=== PATIENT | female | born 1950 | race Caucasian/White ===

== ENCOUNTER 2018-08-11 05:41 | Inpatient (IN) | payer BC ==
[~2018-08-11 05:41] MED LIST: Buffered Lidocaine 1% SYRIN* 1 ML/SYRINGE INTRADERM ONE
--- OUTSIDE RECORDS SUMMARY | 2018-08-11 05:45 | XMS REPORT | Continuity of Care Document ---
:1950 External Reference #:[id number] Author Name Mary Tomlinson Care Team Providers Name Role Phone Tyson Quiñonez MD Primary Care Physician Unavailable Payers Date Identification Numbers Payment Provider Subscriber Policy Number: [id number] [facility] Camille Berry Group Number: [id number] [address] PayID: [id number] [place] [address] Advance Directives Description No Information Available Problems Description No Information Family History Date Family Member(s) Observation Comments Father Prostate Cancer Mother unknown, adopted Mother due to nonhodkins lymphoma () Siblings 5 Social History Type Date Description Comments Sex Unknown Marital Status Single Lives With Alone Occupation Currently Working Occupation radiology assistant to uma at [employer] ETOH Use Denies alcohol use Tobacco Use Start: Unknown Patient has never smoked Recreational Drug Use Never Used Drugs Smoking Status Reviewed: 07/22/18 Patient has never smoked Exercise Type/Frequency Does not exercise Allergies, Adverse Reactions, Alerts Date Description Reaction Status Severity Comments 10/18/2011 Simvastatin Active Medications Medication Date Status Form Strength Qnty SIG Indications Ordering Provider Cyclobenzaprine 07/20 Active Tablets 10mg 21tab take 1 M51.26 Vassilios HCL s tablet by James frias MD to three times a day as needed Lisinopril Active Tablets 10mg 1 by mouth Unknown /0000 every day Hydrochlorothiazid Active Capsules 12.5mg 1 by mouth Unknown e /0000 every day Gabapentin Active Capsules 300mg 1 by mouth Unknown /0000 three times a day Vitamin D Active Capsules 400Unit 60cap 2 by mouth Unknown (Cholecalciferol) / s daily Calcium 1200 Active Chewtabs 8871-0542 1 by mouth Unknown /0000 mg-Unit every day Dilaudid 11/10 Hx Tablets 2mg 40tab 1-2 tab po s q 6 hr prn Florentino, - pain M.D. 07/05 Percocet 10/14 Hx Tablets 5-325mg 60tab 1-2 po s q4-6h prn Young, - pain M.D. 07/05 Medrol Dosepak 11/26 Hx Tablets 4mg 1tabs follow package Florentino, - directions M.D. 07/05 take with food Diclofenac Sodium 11/06 Hx Tablets 75mg 60tab [address] stacey Morrison, - day M.D. 07/05 Immunizations Description No Information Available Vital Signs Date Vital Result Comment 07/22/2018 12:49pm Height 63 inches 5'3" Weight 248.25 lb Heart Rate 73 /min BP Systolic Sitting 133 mmHg L BP Diastolic Sitting 82 mmHg L Respiratory Rate 18 /min Pain Level 6 O2 % BldC Oximetry 96 % BMI (Body Mass Index) 44.0 kg/m2 07/20/2018 1:10pm Height 63 inches 5'3" Weight 245.00 lb BP Systolic Sitting 140 mmHg BP Diastolic Sitting 70 mmHg Pain Level 6 BMI (Body Mass Index) 43.4 kg/m2 07/06/2018 3:42pm Height 63 inches 5'3" Weight 245.00 lb Heart Rate 84 /min BP Systolic 124 mmHg BP Diastolic 82 mmHg Body Temperature 98.9 F Pain Level 6 BMI (Body Mass Index) 43.4 kg/m2 Results Description No Information Available Procedures Date Code Description Status 05/16/2016 97479 ECHO Transthoracic, Real-Time 2D With Doppler And Color Completed Flow 10/23/2011 20743 TKR Total Knee Replacement Completed 10/23/2011 59032 TKR Total Knee Replacement Completed 08/13/2011 85246 Xray Knee 3 Views Completed 08/13/2011 37789 Rad Exam; Knee, Ap&L Completed 10/23/2010 56932 Xray Knee 3 Views Completed Encounters Type Date Location Provider Dx Diagnosis Office Visit 07/20/2018 Spine Navigator Rochelle Schrader, M48.062 Spinal stenosis, 1:15p Of Livestock Agent PA-C lumbar region with neurogenic claudication M41.9 Scoliosis, unspecified M51.26 Other intervertebral disc displacement, lumbar region M43.16 Spondylolisthesis, lumbar region M43.17 Spondylolisthesis, lumbosacral region Office Visit 07/06/2018 4:00p Spine Navigator Rochelle Schrader, M51.37 Other intervertebral Of [facility] MARILIN disc degeneration, lumbosacral region M43.16 Spondylolisthesis, lumbar region M41.9 Scoliosis, unspecified Office Visit 07/09/2012 Perla Good, 719.46 Pain Joint Lower Leg 8:15a Services Of [facility] Office Visit 03/24/2012 Perla Good 715.96 Osteoarthrosis 8:00a Services Of C.MNilaANila Le Unspec Genlzd Or Localized Lower Leg Office Visit 08/13/2011 Perla Good 715.96 Osteoarthrosis 9:45a Services Of C.Theresa Le Unspec Genlzd Or Localized Lower Leg Office Visit 12/17/2010 Perla Good, 715.96 Osteoarthrosis 8:15a Services Of C.Theresa Le Unspec Genlzd Or Localized Lower Leg Office Visit 11/26/2010 Perla Good, 715.96 Osteoarthrosis 4:00p Services Of C.Theresa Le Unspec Genlzd Or Localized Lower Leg Office Visit 11/05/2010 Orthopedic Dimitri Morrison, 836.1 Dislocation Knee 11:15a Services Of CMoe Le Tear Of Lateral Cartilage Or Meniscus Curre Office Visit 10/23/2010 Perla Good, 715.96 Osteoarthrosis 11:15a Services Of C.DonnaANila Le Unspec Genlzd Or Localized Lower Leg Office Visit 10/12/2010 Neurosurgery Yo Lange 724.02 Spinal Stenosis, 11:00a Services Of [facility] Michell, Lumbar Region, W/O M.DNila Neurogenic Claudication Plan of Treatment Future Appointment(s):08/19/2018 1:15 pm - Rochelle Schrader PA-C at Spine Navigator Of [facility]08/11/2018 10:30 am - Rochelle Schrader PA-C at Neurosurgery Services Of [facility]08/11/2018 10:30 am - Tigre Ramirez MD at Neurosurgery Services Of [facility]07/22/2018 - Tigre Ramirez, MDM48.062 Spinal stenosis, lumbar region with neurogenic claudicationFollow up:RV one week, one month, three months postop. Please notify me when imaging is completed.M43.16 Spondylolisthesis, lumbar ktrplfR51.9 Scoliosis, rzlxhasgajsC15.26 Other intervertebral disc displacement, lumbar region
--- OUTSIDE RECORDS SUMMARY | 2018-08-11 05:45 | XMS REPORT | Continuity of Care Document ---
:1950 External Reference #:[id number] Author Name Anne Marie Baumann Care Team Providers Name Role Phone Tyson Quiñonez MD Primary Care Physician Unavailable Payers Date Identification Numbers Payment Provider Subscriber Policy Number: [id number] [facility] Camille Berry Group Number: [id number] [address] PayID: [id number] [place] [address] Advance Directives Description No Information Available Problems Description No Information Family History Date Family Member(s) Observation Comments Father Prostate Cancer Mother unknown, adopted Mother due to nonhodkins lymphoma () Siblings 5 Social History Type Date Description Comments Sex Unknown Marital Status Single Lives With Alone Occupation Currently Working Occupation automobile mechanic assistant to uma at [employer] ETOH Use Denies alcohol use Tobacco Use [...] / s daily Calcium 1200 Active Chewtabs 9459-1040 1 by mouth Unknown /0000 mg-Unit every [...] Available Procedures Date Code Description Status 05/16/2016 80636 ECHO Transthoracic, Real-Time 2D With Doppler And Color Completed Flow 10/23/2011 65305 TKR Total Knee Replacement Completed 10/23/2011 19332 TKR Total Knee Replacement Completed 08/13/2011 33401 Xray Knee 3 Views Completed 08/13/2011 26847 Rad Exam; Knee, Ap&L Completed 10/23/2010 03740 Xray Knee 3 Views Completed Encounters Type Date Location Provider Dx Diagnosis Office Visit 07/06/2018 Spine Navigator Rochelle Schrader, M51.37 Other intervertebral 4:00p Of J2E[employer] Application Developer PA-C disc degeneration, lumbosacral region M43.16 Spondylolisthesis, lumbar region M41.9 Scoliosis, unspecified Office Visit 07/09/2012 Perla Good, 719.46 Pain Joint Lower Leg 8:15a Services Of C.Theresa Le Office Visit 03/24/2012 Perla Good, 715.96 Osteoarthrosis 8:00a Services Of C.Theresa Le Unspec Genlzd Or Localized Lower Leg Office Visit 08/13/2011 Perla Good, 715.96 Osteoarthrosis 9:45a Services Of C.Theresa Le Unspec Genlzd Or Localized Lower Leg Office Visit 12/17/2010 Perla Good, 715.96 Osteoarthrosis 8:15a Services Of C.Theresa Le Unspec Genlzd Or Localized Lower Leg Office Visit 11/26/2010 Perla Good, 715.96 Osteoarthrosis 4:00p Services Of C.Theresa Le Unspec Genlzd Or Localized Lower Leg Office Visit 11/05/2010 Orthopedic Dimitri Morrison, 836.1 Dislocation Knee 11:15a Services Of C.Theresa Le Tear Of Lateral Cartilage Or Meniscus Curre Office Visit 10/23/2010 Perla Good, 715.96 Osteoarthrosis 11:15a Services Of C.Theresa Le Unspec Genlzd Or Localized Lower Leg Office Visit 10/12/2010 Neurosurgery Yo Lange 724.02 Spinal Stenosis, 11:00a Services Of [facility] [place], Lumbar Region, W/O M.DNila Neurogenic Claudication Plan of Treatment Future Appointment(s):07/30/2018 8:00 am - Tigre Ramirez MD at Neurosurgery Services Of [facility]08/19/2018 1:15 pm - Rochelle Schrader PA-C at Spine Navigator Of [facility]08/11/2018 10:30 am - Rochelle Schrader PA-C at Neurosurgery Services Of [facility]08/11/2018 10:30 am - Tigre Ramirez MD at Neurosurgery Services Of [facility]07/20/2018 - ROCKY Loyd-CM48.062 Spinal stenosis, lumbar region with neurogenic rwhfzgwjucpdV44.16 Spondylolisthesis, lumbar fvyaiyN98.9 Scoliosis, qwoquyqzeqaH91.26 Other intervertebral disc displacement, lumbar regionNew Medication:Cyclobenzaprine HCL 10 mg - take 1 tablet by mouth up to three times a day as neededFollow up:With Dr. Darnell43.17 Spondylolisthesis , lumbosacral region
--- OUTSIDE RECORDS SUMMARY | 2018-08-11 05:45 | XMS REPORT | Continuity of Care Document ---
:1950 External Reference #:[id number] Author Name Anne Marie Baumann Care Team Providers Name Role Phone Tyson Quiñonez MD Primary Care Physician Unavailable Payers Date Identification Numbers Payment Provider Subscriber Policy Number: [id number] [facility] Fausto Berry Group Number: [id number] [address] PayID: [id number] [place] [address] Advance Directives Description No Information Available Problems Description No Information Family History Date Family Member(s) Observation Comments Father Prostate Cancer Mother unknown, adopted Mother due to nonhodkins lymphoma () Siblings 5 Social History Type Date Description Comments Sex Unknown Marital Status Single Lives With Alone 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 [employer] Tobacco Use Start: Unknown Never Smoked Cigarettes Smoking Status Reviewed: 08/06/18 Never Smoked Cigarettes ETOH Use Denies alcohol use Tobacco Use Start: Unknown Patient has never smoked Recreational Drug Use Never Used Drugs Exercise Type/Frequency Exercises rarely Allergies, Adverse Reactions, Alerts Date Description Reaction Status Severity Comments 10/18/2011 Simvastatin Active 08/06/2018 Tetanus Toxin Active Medications Medication Date Status Form Strength Qnty SIG Indications Ordering Provider Lisinopril Active Tablets 10mg 1 by mouth Unknown /0000 every day Hydrochlorothiazid Active Capsules 12.5mg 1 by mouth Unknown e /0000 every day Gabapentin Active Capsules 300mg 1 by mouth Unknown /0000 three times a day Calcium 1200 Active Chewtabs 5036-2178 1 by mouth Unknown /0000 mg-Unit every day Vitamin D High Active Capsules 1000Unit 2 by mouth Unknown Potency /0000 every day Advil Active Tablets 200mg 2 tabs by Unknown /0000 mouth daily as needed@hs Cyclobenzaprine 03/25 Hx Tablets 10mg 21tab take 1 M51.26 Vassilios HCL s tablet by James - mouth MD rodriguez 08/05 to times a day as needed Dilaudid 11/10 Hx Tablets 2mg 40tab 1-2 tab po Roverto s q 6 hr prn Florentino - pain M.D. 07/05 Percocet 10/14 Hx Tablets 5-325mg 60tab 1-2 po Roverto s q4-6h prn Anup Good pain M.D. 07/05 Medrol Dosepak 11/26 Hx Tablets 4mg 1tabs follow package Florentino - directions M.D. 07/05 take with food Diclofenac Sodium 11/06 Hx Tablets 75mg 60tab [address] ibarra twice a Prince, - day M.D. 07/05 Vitamin D Hx Capsules 400Unit 60cap 2 by mouth Unknown (Cholecalciferol) /0000 s daily - 08/05 Immunizations Description No Information Available Vital Signs Date Vital Result Comment 08/06/2018 9:14am Height 63 inches 5'3" Weight 248.00 lb Heart Rate 60 /min BP Systolic Sitting 132 mmHg lue large cuff BP Diastolic Sitting 80 mmHg lue large cuff BP Systolic Standing 128 mmHg lue large cuff BP Diastolic Standing 80 mmHg lue large cuff Respiratory Rate 16 /min BMI (Body Mass Index) 43.9 kg/m2 Ejection Fraction 55-60% echo 05/16/16 07/22/2018 12:49pm Height 63 inches 5'3" Weight [...] BMI (Body Mass Index) 43.4 kg/m2 Results Test Date Facility Test Result H/L Range Note CBC No Diff 08/04/2018 [facility] White Blood 6.9 10^3/uL N 3.5-10.[address] [place] [address] [phone] Red Blood Count 4.65 10^6/uL N 3.70-4.87 Hemoglobin 14.8 g/dL N 12.0-16.0 Hematocrit 43 % High 33-41 Mean Corpuscular Volume 93 fL N 80-97 Mean Corpuscular Hemoglobin 32 pg High 27-31 Mean Corpuscular HGB Conc 34 g/dL N 31-36 Red Cell Distribution Width 13 % N 10.5-15 Platelet Count 246 10^3/uL N 150-450 Mean Platelet Volume 8.2 fL N 7.4-10.4 Urinalysis Profile 08/04/2018 [facility] Urine [place] [address] [phone] Urine Appearance Cloudy Urine Specific [place] 1.017 N 1.010-1.030 Urine pH 5.0 N 5-9 Urine Urobilinogen Negative Negative Urine Ketones Negative Negative Urine Protein Negative Negative Urine Leukocytes 2+ Abnormal Negative Urine Blood Negative Negative Urine Nitrite Negative Negative Urine Bilirubin Negative Negative Urine Glucose Negative Negative Urine White Blood Cell 2+(11-20/hpf) Abnormal Absent Urine Red Blood Cell Trace(0-2/hpf) Absent Urine Bacteria Absent Absent Urine Squamous Epithelial Cell Present Abnormal Absent Inr/Protime 08/04/2018 [facility] Inr [address] N 0.77-[address] [place] [address] [phone] Laboratory test 08/04/2018 [facility] Partial 30.7 seconds N 26.0-36.[address] [place] [address] PTT [phone] Type & Screen 08/04/2018 [facility] Patient A Positive [address] [place] [address] [phone] Antibody Screen NEGATIVE Basic Metabolic Panel 08/04/2018 [facility] Sodium 138 mmol/L N [address] [place] [address] [phone] Potassium 4.1 mmol/L N 3.5-5.0 Chloride 104 mmol/L N 101-111 Co2 Carbon Dioxide 25 mmol/L N 22-32 Anion Gap 9 mmol/L N 2-11 Glucose 80 mg/dL N 70-100 Blood Urea Nitrogen 26 mg/dL High 6-24 Creatinine 0.90 mg/dL N 0.51-0.95 BUN/Creatinine Ratio 28.9 High 8-20 Calcium 10.2 mg/dL N 8.6-10.3 Egfr Non- 62.6 >60 Egfr 75.8 >60 1 Urine Culture And 08/04/2018 [facility] Urine Culture SEE RESULT [address] [place] [address] [phone] 1 Because ethnic data is not always readily available, this report includes an eGFR for both -Americans and non- Americans. The National Kidney Disease Education Program (NKDEP) does not endorse the use of the MDRD equation for patients that are not between the ages of 18 and 70, are , have extremes of body size, muscle mass, or nutritional status, or are non- or non-. According to the National Kidney Foundation, irrespective of diagnosis, the stage of the disease is based on the level of kidney function: Stage Description GFR(mL/min/1.73 m(2)) 1 Kidney damage with normal or decreased GFR 90 2 Kidney damage with mild decrease in GFR 60-89 3 Moderate decrease in GFR 30-59 4 Severe decrease in GFR 15-29 5 Kidney failure <15 (or dialysis) 2 SEE RESULT BELOW Name: FAUSTO BERRY : [address]: Tigre Ramirez MD Acct: [id number] Unit: [id number] AGE: 68 Location: [facility] Re08/04/18 SEX: F Status: REG REF SPEC: [id number] ALEXANDRA: 08/04/[address]: Tigre Ramirez MD REQ: [id number] RECD: 08/04/18 STATUS: ADITYA LYNN DR: Tyson Quiñonez MD _ SOURCE: URINE SPDESC: ORDERED: Urine Culture Procedure Result Reported Site Urine Culture Final 08/05/18- 1301 ML No growth of clinically significant organisms * ML - Main Lab . END OF REPORT DEPARTMENT OF PATHOLOGY, [address] [place] [id number] Ronny Adrian M.D. Director [facility] # [id number] Procedures Date Code Description Status 08/06/2018 44114 EKG Tracing & Interpretation Completed 05/16/2016 80451 ECHO Transthoracic, Real-Time 2D With Doppler And Color Completed Flow 10/23/2011 46725 TKR Total Knee Replacement Completed 10/23/2011 17328 TKR Total Knee Replacement Completed 08/13/2011 81989 Xray Knee 3 Views Completed 08/13/2011 11796 Rad Exam; Knee, Ap&L Completed 10/23/2010 10369 Xray Knee 3 Views Completed Encounters Type Date Location Provider Dx Diagnosis Office Visit 07/20/2018 Spine Navigator Rochelle Schrader, M48.062 Spinal stenosis, 1:15p Of Adjudication Specialist PA-C lumbar region with neurogenic claudication M41.9 Scoliosis, unspecified M51.26 Other intervertebral disc displacement, lumbar region M43.16 Spondylolisthesis, lumbar region M43.17 Spondylolisthesis, lumbosacral region Office Visit 07/06/2018 4:00p Spine Navigator Rochelle Schrader, M51.37 Other intervertebral Of Adjudication Specialist PA-C disc degeneration, lumbosacral region M43.16 Spondylolisthesis, lumbar region M41.9 Scoliosis, unspecified Office Visit 07/09/2012 Perla Good, 719.46 Pain Joint Lower Leg 8:15a Services Of Karyn Le Office Visit 03/24/2012 Perla Good, 715.96 Osteoarthrosis 8:00a Services Of Karyn Le Unspec Genlzd Or Localized Lower Leg Office Visit 08/13/2011 Perla Good 715.96 Osteoarthrosis 9:45a Services Of Karyn Le Unspec Genlzd Or Localized Lower Leg Office Visit 12/17/2010 Perla Good 715.96 Osteoarthrosis 8:15a Services Of Karyn Le Unspec Genlzd Or Localized Lower Leg Office Visit 11/26/2010 Perla Good 715.96 Osteoarthrosis 4:00p Services Of Karyn Le Unspec Genlzd Or Localized Lower Leg Office Visit 11/05/2010 Orthopedic Dimitri Morrison, 836.1 Dislocation Knee 11:15a Services Of Karyn Le Tear Of Lateral Cartilage Or Meniscus Curre Office Visit 10/23/2010 Orthopedic Roverto Good, 715.96 Osteoarthrosis 11:15a Services Of Karyn Le Unspec Genlzd Or Localized Lower Leg Office Visit 10/12/2010 Neurosurgery Yo Lange 724.02 Spinal Stenosis, 11:00a Services Of [facility] Michell, Lumbar Region, W/O Rey Neurogenic Claudication Plan of Treatment Future Appointment(s):08/19/2018 1:15 pm - Rochelle Schrader PA-C at Spine Navigator Of [facility]08/11/2018 10:30 am - Rochelle Schrader PA-C at Neurosurgery Services Of [facility]08/11/2018 10:30 am - Tigre Ramierz MD at Neurosurgery Services Of [facility]08/06/2018 - Vitaliy Schulz DO [id number] Encounter for preprocedural cardiovascular examinationFollow up:PRNE66.8 Other [id number] Essential (primary) hypertension
[2018-08-11] MEDS ORDERED: Lactated Ringers 1000 ML Bag* 1,000 ML IV SCH (06:00)
[2018-08-11] MEDS ORDERED: Acetaminophen TAB* 325 MG PO ONE (06:00)
[2018-08-11] MEDS ORDERED: Acetaminophen TAB* 325 MG ONE (06:54)
[2018-08-11] MEDS ORDERED: Buffered Lidocaine 1% SYRIN* 1 ML/SYRINGE INTRADERM ONE (06:54)
[2018-08-11] MEDS ORDERED: ceFAZolin 2 GM in NS PREMIX(*) 2 GM/100 ML BAG IVPB ONE (06:54)
[2018-08-11] MEDS ORDERED: Midazolam* 1 MG/ML 2 ML VIAL (2 MG) ONE (07:19)
[2018-08-11] MEDS ORDERED: fentaNYL* 50 MCG/ML 2 ML VIAL (100 MCG VIAL) ONE ×3 (07:19→12:48)
[2018-08-11] MEDS ORDERED: Famotidine IV* 10 MG/ML 2 ML (20 mg) ONE (07:22)
[2018-08-11] MEDS ORDERED: Cisatracurium* 2 MG/ML MDV 5 ML ONE (08:05)
[2018-08-11] MEDS ORDERED: Phenylephrine 10 MG/ML VIAL* 1 ML VIAL ONE (08:18)
[2018-08-11] MEDS ORDERED: Lidocaine 2% PF * 5 ML VIAL ONE (08:18)
[2018-08-11] MEDS ORDERED: Succinylcholine* 20 MG/ML 10 ML VIAL ONE (09:13)
[2018-08-11] MEDS ORDERED: Ondansetron INJ* 2 MG/ML VIAL ONE (09:13)
[2018-08-11] MEDS ORDERED: Dexamethasone IV* 4 MG/ML 1 ML (4 MG) ONE (09:13)
[2018-08-11] MEDS ORDERED: Propofol* 10 MG/ML 20 ML BTL ONE ×2 (09:13→11:54)
[2018-08-11] MEDS ORDERED: Lidocaine 1% MPF wEPI 200,000* 30 ML SDV ONE (09:34)
[2018-08-11] MEDS ORDERED: Gelfoam 12-7 ADSORBABL SPONGE* 1 EA SPONGE ONE (09:34)
[2018-08-11] MEDS ORDERED: Dexmedetomidine* 200 MCG/2 ML 2 ML VIAL ONE (09:46)
[2018-08-11] MEDS ORDERED: diPHENhydraMINE IV* 50 MG/ML 1 ml VIAL (BENADRYL) IV PRN (10:33)
[2018-08-11] MEDS ORDERED: Acetaminophen TAB* 325 MG PO PRN (10:33)
[2018-08-11] MEDS ORDERED: HYDROcodone/ACETAMIN 5-325 MG* 1 TAB PO PRN ×2 (10:33)
[2018-08-11] MEDS ORDERED: Naloxone* 0.4 MG/ML 1 ML VIAL IV PRN (10:33)
[2018-08-11] MEDS ORDERED: DiMENhydriNATE IV* 50 MG/ML VIAL IV PUSH PRN (10:33)
[2018-08-11] MEDS ORDERED: PROCHLORPERAZINE INJ 5 MG/ML 2 ML VIAL IV PRN (10:33)
[2018-08-11] MEDS ORDERED: Ondansetron INJ* 2 MG/ML VIAL IV PRN ×2 (10:33→11:55)
[2018-08-11] MEDS ORDERED: Magnesium Hydroxide LIQ* 30 ML UDC PO PRN (11:55)
[2018-08-11] MEDS ORDERED: Cyclobenzaprine TAB* 10 MG PO PRN (12:01)
[2018-08-11] MEDS: fentaNYL* 50 MCG/ML 2 ML VIAL (100 MCG VIAL) IV PRN ×3 (12:51→13:48)
[2018-08-11] MEDS ORDERED: Gabapentin CAP(*) 300 MG ONE (12:55)
[2018-08-11] MEDS: Gabapentin CAP(*) 300 MG PO SCH ×2 (13:00→21:28)
[2018-08-11] MEDS ORDERED: DiMENhydriNATE IV* 50 MG/ML VIAL ONE (13:46)
[2018-08-11] MEDS: Lactated Ringers 1000 ML Bag* 1,000 ML IV SCH (14:55)
[2018-08-11] MEDS: HYDROcodone/ACETAMIN 5-325 MG* 1 TAB PO PRN ×2 (15:16→19:48)
--- NOTE | 2018-08-12 00:35 | OP ---
DATE OF OPERATION: 08/11/18 - ROOM #339 DATE OF : 54 SURGEON: Tigre Ramirez MD. GUN EXAMINER: ROCKY Loyd. The case was done with the assistance of surgical PA because of the complexity of the case. ANESTHESIA: General. PRE-OP DIAGNOSIS: Degenerative disk disease, L4-5, with spondylolisthesis. POST-OP DIAGNOSIS: Degenerative disk disease, L4-5, with spondylolisthesis. OPERATIVE PROCEDURE: The patient underwent right L4-5 MIS TLIF with iliac crest bone graft through a separate incision, PEEK interbody cage, local autograft and DBX with L4, L5 pedicle screws with intraoperative navigation and monitoring. ESTIMATED BLOOD LOSS: 50 cc. COMPLICATIONS: None. INDICATIONS: The patient is a very pleasant 68-year-old female with complaints of back pain radiating to both lower extremities, right worse than left, with right lower extremity weakness and difficulty ambulating. After failing all conservative modalities, and after MRI revealed degenerative disease at multiple levels with significant stenosis at L4-5 with grade 1 to 2 spondylolisthesis at L4-5, disk height loss, and right more than left neural foraminal stenosis, the patient was offered the option of surgical intervention. After discussing in detail the different treatment options including a focal arthrodesis to address her major symptoms of right lower extremity weakness and footdrop versus a larger ablation with multilevel fusion and potential extension through the sacrum and pelvis, the patient elected to proceed with the smaller operation, understanding that she may need to have additional procedures in the future. After explaining the expectations, limitations, and possible complications of the procedure with the complications including, but not limited to, bleeding, infection, risk of injury to adjacent structures, paralysis, , need for additional procedures, anesthesia risks, stroke, blindness, cancer, instability, hardware failure, adjacent-level disease , pseudoarthrosis, spinal fluid leak, loss of bladder or bowel control, need for tracheostomy or gastrostomy, anesthesia risks, inability to improve, or worsening of her pain, the patient was agreeable to proceed with surgery and informed consent was obtained. The same were discussed with the patient's significant other. They both understood that her condition may not improve and, in fact, may get worse after surgery and that she may need to have additional procedures in the future. They also understood that the operative plan may be modified according to intraoperative findings and conditions and that the case may be abandoned or done in more than 1 stage. They also understood that there might be a risk of prolonged hospitalization, prolonged ICU stay, need for rehabilitation, need for tracheostomy or gastrostomy or multiple operations. Prior to operative intervention, medical clearance was confirmed with Dr. Quiñonez. DESCRIPTION OF PROCEDURE: The patient was brought to the operating room and was placed under general anesthesia by the anesthesia team. She was carefully positioned prone on Rodriguez table and all bony prominences were meticulously padded. Her skin was prepped and draped in a standard fashion and after appropriate surgical pause and patient identification, a small incision over the left iliac crest was marked and infiltrated with local anesthetic. A #10 surgical blade was used to incise the skin and a Corex needle was inserted at the iliac crest with assistance of a JamshYek Mobile needle and guidewire in order to obtain autonomous iliac crest bone graft. Through the same incision, a navigation star pin was inserted and secured in place and O-arm imaging was then obtained. The patient's data was transferred to the navigation platform and under stereotactic navigation, the projection of the trajectory of the pedicle screws at L4 and L5 was marked on the skin bilaterally as well as the trajectory of the METRx tubular retractor placement. Two paramedian incisions were marked on the skin and skin was infiltrated with local anesthetic. A #10 surgical blade was used to incise the skin and incision was carried down with Bovie cautery. Under stereotactic navigation, the pedicles were cannulated with the use of awl tip tap and Medtronic Voyager awl tip screws were inserted with 6.5 x 50 at the L4 level and 6.5 x 45 for the L5 level. Then, attention was brought to insert the METRx tubular retractor. With the assistance of intraoperative navigation and intraoperative dilators, the METRx tubular retractor was then introduced and secured over the right L4/5 facet and the right L4 yulia-lamina. Operative microscope was brought into the field and after removing a small residual amount of muscle, the lamina and facet were gently exposed. High-speed drill was used to perform partial medial facetectomy as well as hemilaminotomy and partial laminectomy extending on the other side with use of high-speed drill and Kerrison punches. Locally harvested bone graft was saved for use after this part of the procedure. The ligamentum flavum was gently reflected and was removed with the use of Kerrison punches. The lateral border of the thecal sac as well as the L5 nerve root was identified and a foraminotomy was performed at L5 and partially at L4. Then, the dura was gently retracted medially with a nerve root retractor and the posterior longitudinal ligament was then identified over the disk space. Diskectomy was performed after incising the annulus fibrosus with a #15 surgical blade and the disk space was carefully prepared with the use of series of dilators, pituitary rongeurs, Kerrison punches, and curettes. Then, the prepared disk space was packed with locally harvested bone graft, iliac crest bone graft as well as DBX putty in order to assist in arthrodesis, and an ELEVATE 7 x 23 with 15 degrees of lordosis was inserted after being filled with a mixture of autograft and DBX. The ELEVATE cage was gently expanded and after confirmation with meticulous hemostasis and copious irrigation and meticulous inspection, the tubular retractor was gently removed after confirming excellent hemostasis as well as the integrity of the thecal sac with Valsalva maneuver . The tubular retractor was gently removed and the fascial defect was approximated with 0 interrupted Vicryl sutures. Then, attention was brought to connect the screws with two 40 mm cobalt chrome rods, which were inserted through the same incisions. The rods were secured with screw head caps and a second intraoperative O-arm imaging was obtained and confirmed excellent placement of all hardware. The screw head caps were tightened and then the nerve root retractors were then gently removed as well as the food sales clerk of the screws. After copious irrigation and confirmation of meticulous hemostasis and meticulous inspection, the wounds were closed by layers after removing the navigation star pin. A 0 interrupted Vicryl suture was used to approximate the fascial defects, the subcutaneous tissue was approximated with inverted interrupted 2-0 Vicryl sutures, the skin was covered with Dermabond. At the end of the procedure, all counts were reported to be correct. The patient remained hemodynamically stable throughout the case. The intraoperative electrophysiological monitoring was stable throughout the case with some improvement of the L4 and L5 nerve root monitoring. The patient was then turned supine, was extubated, and was transferred to recovery in excellent position. The case was done with the assistance of surgical PA because of the complexity of the case. [id number]/[facility] #: [id number] NISHA
[2018-08-12] MEDS: Lactated Ringers 1000 ML Bag* 1,000 ML IV SCH (04:23)
[2018-08-12] MEDS: HYDROcodone/ACETAMIN 5-325 MG* 1 TAB PO PRN ×3 (06:27→20:57)
[2018-08-12] MEDS: Gabapentin CAP(*) 300 MG PO SCH ×3 (09:13→20:56)
[2018-08-12] MEDS: Hydrochlorothiazide TAB* 25 MG PO SCH (09:13)
[2018-08-12] MEDS: Lisinopril TAB* 10 MG PO SCH (09:13)
[2018-08-13] MEDS ORDERED: NS 0.9% 500 ML* 500 ML IV ONE ×2 (03:40→03:53)
--- NOTE | 2018-08-13 04:20 | PN ---
Hospitalist Progress Note Date of Service: 08/13/[address] Cole and requested pt to be evaluated. Pt feels dizzy w/ manual BP of 100/64. No other complaints. Heart, chest, abd, and ext exam WNL. Pt AAOx4. Agree w/NS bolus ordered by Dr. Cole. Sent the ff: labs: CBC, CMP, Mg, and Phosphorous.
[2018-08-13 05:00] LABS: Hematocrit 34 % (33-41); Hemoglobin 11.4 g/dL (12.0-16.0); Mean Corpuscular HGB Conc 34 g/dL (31-36); Mean Corpuscular Hemoglobin 32 pg (27-31); Mean Corpuscular Volume 95 fL (80-97); Mean Platelet Volume 8.3 fL (7.4-10.4); Platelet Count 166 10^3/uL (150-450); Red Blood Count 3.59 10^6 /uL (3.70-4.87); Red Cell Distribution Width 12 % (10.5-15); White Blood Count 8.5 10^3/uL (3.5-10.8)
[2018-08-13 05:34] LABS: Albumin 3.3 g/dL (3.2-5.2); Albumin/Globulin Ratio 1.2 (1-3); BUN/Creatinine Ratio 29.5 (8-20); Calcium 8.5 mg/dL (8.6-10.3); EGFR African American 77.8 (>60); EGFR Non-African American 64.3 (>60); Globulin 2.8 g/dL (2-4); Potassium 3.9 mmol/L (3.5-5.0); Total Bilirubin 0.5 mg/dL (0.2-1.0); Total Protein 6.1 g/dL (6.4-8.9)
[2018-08-13] MEDS: Acetaminophen TAB* 325 MG PO PRN ×3 (07:17→19:56)
[2018-08-13] MEDS: HYDROcodone/ACETAMIN 5-325 MG* 1 TAB PO PRN ×3 (07:17→19:56)
[2018-08-13] MEDS: Gabapentin CAP(*) 300 MG PO SCH ×3 (09:25→19:55)
[2018-08-13] MEDS: Lisinopril TAB* 10 MG PO SCH (09:25)
[2018-08-13] MEDS: Hydrochlorothiazide TAB* 25 MG PO SCH (09:25)
--- NOTE | 2018-08-13 12:12 | PN ---
Progress Note - Progress Note Date of Service: 08/13/18 SOAP: Subjective: 68 y/o female s/p right side TLIF of L4/L5 POD x 2. Patient was hypotensive over night, given 500 ml bolus of NS and was evaluated by hospitalist. Her BP has been normalized. She complains of post procedure pain, but otherwise has been stable. Objective: Selected Entries 08/13/18 08/13/18 08/13/18 09:00 11:58 12:00 Blood Pressure 102/62 131/72 141/77 (mmHg) 08/13/18 12:01 Blood Pressure 131/67 (mmHg) General : Patient laying flat in bed NAD. Neruo : A & O x 3, CN II - XII intact, sensation intact with light touch, reflexes 2+/4 in all extremities Musculoskeletal : Motor strength 5/5 in all extremities Derm: Surgical site clean, dry intact with no drainage or erythema. Assessment: 68 y/o female s/p right side TLIF of L4/L5 POD x 2 hypotensive, but improved with with fluids. Patient continues to mild post procedure pain, but overall stable. Currently being followed medicine for blood pressure control. Plan: 1) Continue monitor blood pressure 2) Continue ambulate with assistance 3) Pain control as needed. 4) If blood pressure continues to be stable and is cleared by medicine patient possibly discharged home.
[2018-08-13 12:37] LABS: TSH (Thyroid Stimulating Horm) 0.97 mcIU/mL (0.34-5.60)
--- NOTE | 2018-08-13 13:52 | CONS ---
CC: Dr. Quiñonez* CONSULTATION REPORT: DATE OF CONSULT: 08/13/18 PRIMARY CARE PROVIDER: Dr. Quiñonez. REQUESTING PHYSICIAN IN CONSULT: Dr. Ramirez.* ATTENDING PHYSICIAN: Dr. Shadia Ramey (dictated by Geoffrey Márquez NP). REASON FOR CONSULT: Co-medical management of dizziness. HISTORY OF PRESENT ILLNESS/HOSPITAL COURSE: I will refer you to H and P dictated by Dr. Ramirez, but in short, Mrs. Berry is a 68-year-old female with a past medical history significant for arthritis, hypertension, hypercholesterolemia, who presented to [facility] on 08/11/18 for a right L4-L5 MIS-based TLIF with iliac crest bone graft. This morning at 0300, the patient was noted to have low blood pressure, therefore the physician was contacted. Pain meds were held. IV fluid bolus was given. This morning after the patient woke up around 0700, she was given pain medication and was helped up to the chair. After sitting on the chair for about 20 minutes and after eating breakfast, the patient had episode of dizziness. The patient reports that when she laid back down, dizziness went away and dizziness has not returned since that time. Given this episode, the hospitalist were asked to evaluate. PAST MEDICAL HISTORY: 1. Arthritis. 2. Hypertension. 3. Hypercholesterolemia. 4. Fatty liver. PAST SURGICAL HISTORY: Total knee replacement in 2012. HOME MEDICATIONS: 1. Vitamin D 20 mcg p.o. q.a.m. 2. Lisinopril 10 mg p.o. q.a.m. 3. Ibuprofen/diphenhydramine 2 caps p.o. at bedtime. 4. Hydrochlorothiazide 12.5 mg p.o. q.a.m. 5. Gabapentin 30 mg p.o. t.i.d. 6. Calcium 1200 mg p.o. q.a.m. ALLERGIES: TETANUS VACCINE and TETANUS TOXOID. FAMILY HISTORY: Father had prostate cancer and back issues. Mother's history is unknown as the patient was adopted, but she believes the mother of non- Hodgkin's lymphoma. SOCIAL HISTORY: The patient denies smoking. The patient denies alcohol use. The patient denies drug use. The patient denies coffee. The patient reports she drinks an average of 8 ounces of soda per day. The patient do not exercise. The patient lives with her . REVIEW OF SYSTEMS: Constitutional: The patient denies fevers, anorexia, or weight loss. Cardiac: The patient denies chest pain, palpitations, shortness of breath. Respiratory: The patient denies cough, shortness of breath, or hemoptysis. GI: The patient denies nausea, the patient denies vomiting, the patient denies diarrhea. : The patient denies dysuria. Musculoskeletal: The patient reports back pain that is well controlled with current pain medication regimen. Skin: The patient denies rashes or lesions. Neuro: The patient reports 1 episode of dizziness this morning, that has resolved. Psych: The patient denies anxiety. PHYSICAL EXAM: General: Mrs. Berry is a 68-year-old female who is lying in bed. Appears in no acute distress. Appears stated age. Vital Signs: Temp 98.6, HR 60, RR 16, O2 saturation 100%, BP 102/62. HEENT: PERRLA. EOMs intact. Oral mucosa is moist without lesions. Posterior pharynx is clear. Neck: Full range of motion. No lymphadenopathy. Respiratory: Symmetrical chest expansion. No accessory muscle use. Lungs are clear to auscultation. Cardiac: Regular rate and rhythm. S1, S2 present. No murmurs, rubs, or gallops. Extremities: Skin is warm and smooth bilaterally. No edema. No clubbing or cyanosis. Pedal pulses are 2+ bilaterally. Musculoskeletal: Full range of motion. Reports back pain. No deformities. Abdomen: Soft, nontender to palpation. Bowel sounds normoactive. Neuro: The patient is awake , alert, and oriented x4. Cranial nerves II through XII are grossly intact. Moves all extremities. Motor strength is 5/5 in upper and lower extremities. Sensation: Intact. Coordination intact. Skin: Grossly intact without lesions. Dressings to low back are clean, dry, and intact. DIAGNOSTIC STUDIES/LABORATORY DATA: WBC 8.5, hemoglobin 11.4, hematocrit 34, platelets 166. Sodium 138, potassium 3.9, chloride 106, carbon dioxide 28, BUN 26, creatinine 0.88, glucose 112. ASSESSMENT AND PLAN: Ms. Berry is a 68-year-old female with a past medical history significant for hypertension, arthritis, hypercholesterolemia, fatty liver; who presented to [facility] for an elective L4-L5 transforaminal lumbar interbody fusion. The patient is on short-stay surgical. 1. Dizziness: I discussed the events leading up to the dizziness with the patient. She had no aggravating or alleviating symptoms. The symptoms resolved on their own after lying flat. The patient is no longer dizzy. Nurses obtained orthostatic vital signs. The patient was not orthostatic as her systolic remained 130 to 140. The patient also did not have any dizziness while vital signs were being taken. The patient's labs were unremarkable. The patient's EKG revealed sinus arvin with occasional PAC. No ST changes. The patient's BP meds are held this morning given low blood pressure. I suspect the patient's single episode of dizziness could be attributed to her recent surgery, pain medications, and fluid status. The patient is encouraged to take p.o. fluid. The patient also has maintenance fluids ordered. For further workup, I have ordered a TSH and the hemoglobin A1c. I would recommend holding her blood pressure meds again tomorrow to avoid a repeat episode of dizziness. 2. Arthritis: As mentioned above, the patient has a history of arthritis. The patient should continue her pain medications while here in the hospital as ordered by the neuro team. The patient reports that she takes 800 mg of Advil q.2 hours for the past couple of months. She has been educated by her primary care and Dr. Schulz the risk of taking this large amount of Advil. The patient reports she will not take this large amount again. I also educated the patient of the risks of this large amount of Advil. The patient states understanding. 3. Hypertension: As mentioned above, the patient did have episode of hypotension this morning. The patient's blood pressure meds were held. I would continue to hold her lisinopril and HCTZ tomorrow to reduce the risk of repeat dizziness. The patient can resume these medications at home. 4. Hypercholesterolemia: The patient has a history of hypercholesterolemia, but I see that she is not on statin medication. I will defer this to the patient's primary care. 5. Fatty liver/liver disease: The patient reports she once had an AST and ALT , which were elevated. Therefore, liver ultrasound was ordered. Finding was fatty liver. The patient has followup with GI and her primary care. 6. FEN: The patient should continue her diet as ordered by neuro team. 7. Code status: The patient is a full code. 8. DVT prophylaxis: The patient has SCDs ordered by the ortho team. TIME SPENT: Approximately 60 minutes was spent on this consultation, greater than half the time was spent with the patient and obtaining my history and performing physical exam and reviewing my plan of care. This case was reviewed with my attending, Dr. Ramey, who agrees with my plan of care. Thank you very much for allowing us to participate in the care of this patient. We will be signing off as the patient is no longer dizzy and blood pressures have normalized. We will be available to you as needed. GEOFFREY MÁRQUEZ NP [id number]/[facility] #: [id number] NISHA
[2018-08-14] MEDS: HYDROcodone/ACETAMIN 5-325 MG* 1 TAB PO PRN ×2 (00:30→08:43)
[2018-08-14] MEDS: Acetaminophen TAB* 325 MG PO PRN ×2 (00:30→08:43)
[2018-08-14 07:12] LABS: ABS Basophils 0.1 10^3/ul (0-0.2); ABS Eosinophils 0.2 10^3/ul (0-0.6); ABS Monocytes 0.6 10^3/ul (0-0.8); ABS Neutrophils 3.5 10^3/ul (1.5-7.7); ABS Nucleated RBC 0 10^3/ul; Eosinophil % 2.4 %; Hematocrit 35 % (33-41); Hemoglobin 11.7 g/dL (12.0-16.0); Lymphocyte % 31.9 %; Mean Corpuscular HGB Conc 34 g/dL (31-36); Mean Corpuscular Hemoglobin 32 pg (27-31); Mean Corpuscular Volume 94 fL (80-97); Mean Platelet Volume 8.5 fL (7.4-10.4); Nucleated Red Blood Cells % 0.1; Platelet Count 157 10^3/uL (150-450); Red Blood Count 3.69 10^6 /uL (3.70-4.87); Red Cell Distribution Width 12 % (10.5-15); White Blood Count 6.3 10^3/uL (3.5-10.8)
[2018-08-14 07:46] LABS: BUN/Creatinine Ratio 22.5 (8-20); Calcium 8.8 mg/dL (8.6-10.3); EGFR African American 86.8 (>60); EGFR Non-African American 71.8 (>60)
--- NOTE | 2018-08-14 08:28 | PN ---
Progress Note - Progress Note Date of Service: 08/14/18 SOAP: Subjective: [S/p right L4-5 TLIF POD #3 Pt reports low back , incisional pain Pain controlled with PO medications Ambulating with assistance of a walker Working with physical therapy Was able to safely ascend stairs yesterday Eating and drinking well Denies headache, nausea Was evaluated by hospitalist for hypotension, cleared] Objective: [ Vital Signs: Temp Pulse Resp BP Pulse Ox 99.2 F 68 16 111/91 95 08/14/18 03:43 08/14/18 03:43 08/14/18 03:43 08/14/18 03:43 08/14/18 03:43 General: Alert, laying comfortably in bed, NAD Neuro: Motor and sensory intact Incision: Intact, no swelling, erythema. Dressing in place] Assessment: [Satisfactory post-op] Plan: [1. Discharge home today 2. Discharge instructions discussed]
[2018-08-14] MEDS: Gabapentin CAP(*) 300 MG PO SCH (08:47)
[2018-08-14 12:38] VITALS: BP 137/71
--- NOTE | 2018-08-14 20:22 | DS ---
DISCHARGE SUMMARY: DATE OF ADMISSION:08/11/18 DATE OF DISCHARGE: 08/14/18 DATE OF OPERATION: 08/11/18 SURGEON: Tigre Ramirez MD ADMISSION DIAGNOSIS: Degenerative disk disease at L4-L5 with spondylolisthesis. DISCHARGE DIAGNOSIS: Degenerative disk disease at L4-L5 with spondylolisthesis. DISPOSITION: Home CONDITION AT DISCHARGE: Good HISTORY OF PRESENT ILLNESS: Ms. Berry is a 68-year-old female, who presented to the clinic with complaint of bilateral axial low back pain with bilateral radicular pain. Her pain increased over several months, that also began to interfere with her daily activities including walking, standing, and regular hobbies that she enjoyed. She attempted to do some conservative therapy , which included medications such as ibuprofen and gabapentin, which did not give her any relief. She was given the option of surgery, which she understood the risks and benefits and chose to undergo. On 08/11/18, the patient underwent an L4-L5 TLIF, which she tolerated really well and was extubated and went to PACU. Later that day, was also placed in short-stay surgery for observation. During that time, Ms. Berry had an issue with hypotension, which was corrected with fluid and reduction of high blood pressure medication. Hospitalist team was consulted and followed her. At time of discharge, she was able to tolerate oral fluids and liquids. Her hypotension issue had been rectified and she was cleared by the medicine team for discharge. At the time of discharge, the patient's condition was good. She was able to ambulate with a walker. She has been instructed to keep the wound clean and dry until postop day 3. Follow up with her primary care within 1 week and has a scheduled appointment here at the neurosurgery clinic with ROCKY Loyd. [id number]/[facility] #: [id number] NISHA
--- NOTE | 2018-08-14 23:32 | DS ---
DISCHARGE SUMMARY: DATE OF ADMISSION: 08/11/18 DATE OF DISCHARGE: 08/14/18 ATTENDING PHYSICIAN: Dr. Ramirez. HISTORY OF PRESENT ILLNESS: Ms. Berry is a 68-year-old female who presented to the clinic with co mplaint of axial low back pain with bilateral lower extremity radicular pain. She had attempted to t ry conservative therapy including antiinflammatory medications and also gabapentin, which did not res olve her pain. Her symptoms became persistent, began to making daily activities difficult. The patie nt complained of increased pain with walking, standing, and regular hobbies. The patient was offered a surgical option, which include an L4-L5 TLIF with interbody placement. She underwent surgery on with Dr. Ramirez and tolerated the procedure very well. She was extubated after surgery, s ent to PACU and later to short stay unit. On postop day 2, the patient had experienced hypotensive e pisode, which was corrected with fluids and decrease of hypertension medications. She was followed b y medical team, which stabilized her blood pressure. At time of discharge, she was cleared by medica l team, was not have any further complications. Her status was good, she was able to ambulate and wa s tolerating oral fluids and food without complications. It is recommended that the patient continue to keep wound dry and clean, and not to shower until postop day 3. She has a followup appointment he re at surgery clinic, she will be meeting with ROCKY Loyd. She is recommended to follow up with her primary care within 1 week for reevaluation of her medication. [id number]/[facility] #: [id number]
== END 2018-08-14 13:15 | disposition home or self-care (01) | DRG 304 ==
LOC: AA 05:41 → SSU 11:55
PROVIDERS: ADMIT Neurological Surgery; ATTEND Neurological Surgery
PROC: 4A11X4G Monitoring of Peripheral Nervous Electrical Activity, Intraoperative, External Approach (ICD-10-PCS; 2018-08-11)
PROC: 0SB20ZZ Excision of Lumbar Vertebral Disc, Open Approach (ICD-10-PCS; 2018-08-11)
PROC: 0QB20ZZ Excision of Right Pelvic Bone, Open Approach (ICD-10-PCS; 2018-08-11)
PROC: 8E0WXBZ Computer Assisted Procedure of Trunk Region (ICD-10-PCS; 2018-08-11)
PROC: 0SG00AJ Fusion of Lumbar Vertebral Joint with Interbody Fusion Device, Posterior Approach, Anterior Column, Open Approach (ICD-10-PCS; principal; 2018-08-11 07:30)
DX: M43.16 Spondylolisthesis, lumbar region (principal); Z68.41 Body mass index [BMI] 40.0-44.9, adult; M51.36 Other intervertebral disc degeneration, lumbar region; I10 Essential (primary) hypertension; M19.90 Unspecified osteoarthritis, unspecified site; E78.00 Pure hypercholesterolemia, unspecified; K76.0 Fatty (change of) liver, not elsewhere classified; R42 Dizziness and giddiness; G89.29 Other chronic pain; E66.9 Obesity, unspecified; M48.062 Spinal stenosis, lumbar region with neurogenic claudication; M41.9 Scoliosis, unspecified; Z96.651 Presence of right artificial knee joint; Z88.7 Allergy status to serum and vaccine; Z88.8 Allergy status to other drugs, medicaments and biological substances; Z80.7 Family history of other malignant neoplasms of lymphoid, hematopoietic and related tissues; I95.9 Hypotension, unspecified
CPT/HCPCS: 36415; 72100; 76000; 80048; 80053; 83036; 83735; 84443; 85025; 85027; 93005; A9270-GY; J0330; J0690; J1100; J1240; J2001; J2250; J2405; J2704; J3010

== ENCOUNTER 2020-05-23 06:24 | Observation (INO) ==
[~2020-05-23 06:24] MED LIST changes: +Buffered Lidocaine 1% SYRIN 1 ml INTRADERM ONE; -Buffered Lidocaine 1% SYRIN* 1 ML/SYRINGE INTRADERM ONE; +Famotidine IV 10 MG/ML 2 ml VIAL (20 mg) IV ONE; +Lactated Ringers 1000 ml BAG 1,000 ML IV SCH
[2020-05-23] MEDS ORDERED: Propofol 10 MG/ML 20 ML BTL ONE (06:58)
[2020-05-23] MEDS ORDERED: Midazolam 2 mg/2 ml VIAL 1 mg/ml 2 ml VIAL (2 mg) ONE (06:58)
[2020-05-23] MEDS ORDERED: ceFAZolin 2 GM PREMIX 2 GM/50 ML BAG ONE (07:10)
[2020-05-23] MEDS ORDERED: Famotidine IV 10 MG/ML 2 ml VIAL (20 mg) ONE (07:11)
[2020-05-23] MEDS ORDERED: Dexamethasone IV 4 MG/ML VIAL 1 ml VIAL ONE (07:33)
[2020-05-23] MEDS ORDERED: fentaNYL 250 mcg/5 ml 50 MCG/ML 5 ml VIAL (250 MCG) ONE (07:33)
[2020-05-23] MEDS ORDERED: Ketamine HCL 50 mg/ml 10 ml VIAL (500 MG) ONE (07:33)
[2020-05-23] MEDS ORDERED: Ondansetron 4 mg VIAL 2 MG/ML 2 ml VIAL ONE (07:33)
[2020-05-23] MEDS ORDERED: Lidocaine 2% PF 5 ML VIAL ONE (07:33)
[2020-05-23] MEDS ORDERED: ROPIVACAINE 5 MG/ML 30 ML BTL (0.5%) ONE (07:38)
[2020-05-23] MEDS ORDERED: Phenylephrine 40 mcg/mL 10mL (400mcg) SYRINGE ONE (08:10)
[2020-05-23] MEDS ORDERED: EPHEDrine (Pressors) 50 MG/ML VIAL ONE (08:14)
[2020-05-23] MEDS ORDERED: HYDROmorphone 1 MG/1 ML SYRINGE ONE ×2 (08:45→11:08)
[2020-05-23] MEDS ORDERED: Naloxone 0.4 mg VIAL 0.4 mg/ml 1 ml VIAL IV PRN (10:27)
[2020-05-23] MEDS ORDERED: DiMENhydriNATE IV 50 mg/ml 1 ml VIAL IV PUSH PRN (10:27)
[2020-05-23] MEDS ORDERED: Magnesium Hydroxide LIQ 30 ML UDC PO PRN (10:34)
[2020-05-23] MEDS ORDERED: diPHENhydraMINE IV 50 MG/ML 1 ml VIAL (BENADRYL) IV PRN (10:34)
[2020-05-23] MEDS ORDERED: Lactulose 30 ml UDC PO PRN (10:34)
[2020-05-23] MEDS ORDERED: Ondansetron ODT 4 mg TAB 4 MG TAB PO PRN (10:34)
[2020-05-23] MEDS ORDERED: Morphine 2 MG/ML SYRINGE IV PRN (10:34)
[2020-05-23] MEDS ORDERED: diPHENhydraMINE 25 mg TAB PO PRN (10:34)
[2020-05-23] MEDS ORDERED: oxyCODONE/Acetamin 5/325 mg TAB PO PRN (10:34)
[2020-05-23] MEDS ORDERED: oxyCODONE/Acetamin 5/325 mg TAB ONE ×2 (10:41→11:03)
[2020-05-23] MEDS: oxyCODONE/Acetamin 5/325 mg TAB PO PRN ×2 (10:43→11:04)
[2020-05-23] MEDS: HYDROmorphone 1 MG/1 ML SYRINGE IV PRN ×3 (11:14→11:34)
[2020-05-23] MEDS: Lactated Ringers 1000 ml BAG 1,000 ML IV SCH ×2 (12:19→23:07)
[2020-05-23] MEDS: Ondansetron 4 mg VIAL 2 MG/ML 2 ml VIAL IV PRN ×2 (14:05→23:19)
[2020-05-23] MEDS: ceFAZolin 1 GM ADVAN 1 GM in NS 0.9% 50 ML 50 ML IVPB SCH (16:09)
[2020-05-23] MEDS: Magnesium Hydroxide LIQ 30 ML UDC PO SCH (20:59)
[2020-05-24] MEDS: ceFAZolin 1 GM ADVAN 1 GM in NS 0.9% 50 ML 50 ML IVPB SCH ×2 (00:25→08:21)
[2020-05-24 05:16] LABS: Hematocrit 35 % (35-47); Mean Platelet Volume 8.3 fL (7.4-10.4); Platelet Count 204 10^3/uL (150-450)
[2020-05-24 05:36] LABS: BUN/Creatinine Ratio 18.1 (8-20); Calcium 9.5 mg/dL (8.6-10.3); EGFR African American 63.1 (>60); EGFR Non-African American 52.1 (>60); Potassium 5.3 mmol/L (3.5-5.0)
[2020-05-24] MEDS: Magnesium Hydroxide LIQ 30 ML UDC PO SCH (08:30)
[2020-05-24] MEDS ORDERED: Vitamin THERAPEUTIC TAB PO SCH (09:00)
[2020-05-24] MEDS ORDERED: NS 0.9% 500 ml BAG 500 ML IV ONE (11:37)
[2020-05-24 14:26] VITALS: BP 114/62
== END 2020-05-24 15:40 | disposition home or self-care (01) ==
LOC: SSU 06:24 → OR 06:24
PROVIDERS: ADMIT Orthopaedic Surgery Adult Reconstructive Orthopaedic Surgery; ATTEND Orthopaedic Surgery Adult Reconstructive Orthopaedic Surgery